=== PATIENT | male | born 1940 | race African-American/Black ===

== ENCOUNTER 2016-06-28 07:49 | Inpatient (IN) | payer OTHER ==
[~2016-06-28] VITALS: Ht 170.2 cm; Wt 61.2 kg
[~2016-06-28 07:49] MED LIST: AMLO1CAP PO; ASPI325T2 PO
[2016-06-28] MEDS ORDERED: MORPHINE SULFATE 4 MG/ML CPJ (NOT FOR IM USE) IV STA (08:07)
[2016-06-28] MEDS ORDERED: ONDANSETRON HCL 4MG/2ML VIAL IV STA (08:07)
[2016-06-28 08:26] LABS: BASOPHILS % 0.4 % (0.0-2.0); EOSINOPHILS % 0.3 % (0.0-5.0); LYMPHOCYTES % 7.1 % (20.0-50.0); MEAN CORPUSCULAR HEMOGLOBIN 28.4 pg (28.0-32.0); MEAN CORPUSCULAR HGB CONC 33.5 g/dL (31.0-37.0); MEAN PLATELET VOLUME 8.6 fl (7.4-10.4); MONOCYTES % 4.8 % (2.0-8.0); NEUTROPHILS % 87.4 % (40.0-76.0); PLATELET 268 x1000/uL (130-400); RED BLOOD CELL COUNT 5.29 mill/uL (4.7-6.1); RED CELL DISTRIBUTION WIDTH 14.6 % (11.6-14.6); WHITE BLOOD COUNT 7.5 x1000/uL (4.5-11.0)
[2016-06-28 08:30] LABS: PROTHROMBIN TIME 10.5 sec
[2016-06-28 09:21] LABS: ALANINE AMINOTRANSFERASE 12 IU/L (13-61); ALBUMIN 3.2 g/dL (3.4-5.0); ANION GAP 16; CALCIUM 9.2 mg/dL (8.5-10.1); CARBON DIOXIDE 31 mEq/L (21-32); CHLORIDE 92 mEq/L (98-107); INDEX HEMOLYSI 1 (1-3); INDEX ICTERIC 1 (1-4); INDEX LIPEMIC 1 (1-3); LIPASE 63 IU/L (73-393); TROPONIN I < 0.02 ng/mL (0.00-0.04); UREA NITROGEN BLOOD 8 mg/dL (7-21); eGFR > 60 mL/min (>60)
[2016-06-28 11:15] LABS: CLARITY URINE CLEAR (CLEAR); COLOR URINE YELLOW (YELLOW); GLUCOSE URINE NEGATIVE (NEGATIVE); KETONES URINE 1+ (NEGATIVE); LEUKOCYTE ESTERASE URINE NEGATIVE (NEGATIVE); NITRITE URINE NEGATIVE (NEGATIVE); OCCULT BLOOD URINE TRACE (NEGATIVE); PROTEIN URINE 1+ (NEGATIVE); SPECIFIC GRAVITY URINE 1.017 (1.005-1.030)
[2016-06-28 11:52] LABS: RBC URINE 0-2 /hpf (0-2); WBC URINE NONE SEEN /hpf (0-2)
[2016-06-28 11:53] LABS: BACTERIA URINE TRACE; SQUAMOUS EPITHELIAL CELL URINE NONE SEEN /lpf (RARE/1+)
[2016-06-28 12:40] VITALS: BP 177/104
[2016-06-28] MEDS ORDERED: ASPI-1035 PO (12:54)
[2016-06-28] MEDS ORDERED: CLONIDINE 0.1MG TABLET PO PRN (13:15)
[2016-06-28] MEDS: ONDANSETRON HCL 4MG/2ML VIAL IV PRN ×2 (13:29→20:51)
[2016-06-28] MEDS: CLONIDINE 0.1MG TABLET PO PRN (13:32)
[2016-06-28 16:00] VITALS: BP 159/92
[2016-06-28] MEDS: HYDROCODONE/ACETAMINOPHEN 5/325MG TABLET PO PRN (18:50)
[2016-06-28 20:00] VITALS: BP 131/83
[2016-06-29] VITALS: BP 165/92
[2016-06-29] MEDS: HYDROCODONE/ACETAMINOPHEN 5/325MG TABLET PO PRN ×3 (00:06→12:53)
[2016-06-29 04:00] VITALS: BP 156/86
[2016-06-29] MEDS: CLONIDINE 0.1MG TABLET PO PRN (05:40)
[2016-06-29 08:00] VITALS: BP 159/88
[2016-06-29] MEDS: PANTOPRAZOLE SODIUM 40 MG/VIAL IV SCH (09:01)
[2016-06-29 10:21] LABS: DIFFERENTIAL COMMENT 1; HEMOGLOBIN. 13.4 g/dL (14.0-18.0); MEAN CORPUSCULAR HEMOGLOBIN 28.5 pg (28.0-32.0); MEAN CORPUSCULAR HGB CONC 33.4 g/dL (31.0-37.0); MEAN CORPUSCULAR VOLUME 85.3 fL (80.0-94.0); MEAN PLATELET VOLUME 9.3 fl (7.4-10.4); PLATELET 251 x1000/uL (130-400); RED BLOOD CELL COUNT 4.69 mill/uL (4.7-6.1); RED CELL DISTRIBUTION WIDTH 14.3 % (11.6-14.6); WHITE BLOOD COUNT 10.8 x1000/uL (4.5-11.0)
[2016-06-29 10:41] LABS: PLATELET ESTIMATE NORMAL
[2016-06-29 10:50] LABS: ALANINE AMINOTRANSFERASE 15 IU/L (13-61); ALBUMIN 2.6 g/dL (3.4-5.0); ANION GAP 13; CALCIUM 8.3 mg/dL (8.5-10.1); CARBON DIOXIDE 29 mEq/L (21-32); CHLORIDE 92 mEq/L (98-107); INDEX HEMOLYSI 1 (1-3); INDEX ICTERIC 1 (1-4); INDEX LIPEMIC 1 (1-3); UREA NITROGEN BLOOD 11 mg/dL (7-21); eGFR > 60 mL/min (>60)
[2016-06-29 12:00] VITALS: BP 140/88
[2016-06-29] MEDS: METOCLOPRAMIDE HCL 10MG/2ML VIAL IV SCH ×2 (12:52→17:48)
[2016-06-29] MEDS: AMLODIPINE 5MG TABLET PO SCH (12:53)
[2016-06-29 16:00] VITALS: BP 120/77
[2016-06-29 20:00] VITALS: BP 126/77
[2016-06-30] VITALS: BP 120/72
[2016-06-30] MEDS: METOCLOPRAMIDE HCL 10MG/2ML VIAL IV SCH ×4 (00:08→17:23)
[2016-06-30 04:00] VITALS: BP_SYST 118; BP_SYST 121; BP_DIAS 74; BP_DIAS 81
[2016-06-30] MEDS: HYDROCODONE/ACETAMINOPHEN 5/325MG TABLET PO PRN (04:22)
[2016-06-30 08:00] VITALS: BP 117/73
[2016-06-30] MEDS: PANTOPRAZOLE SODIUM 40 MG/VIAL IV SCH (08:41)
[2016-06-30] MEDS: AMLODIPINE 5MG TABLET PO SCH (08:42)
[2016-06-30 12:00] VITALS: BP 114/87
[2016-06-30 16:00] VITALS: BP 118/87
[2016-06-30] MEDS: PROMETHAZINE 5 ML/6.25 MG 118ML LIQ PO PRN ×2 (16:38→20:48)
[2016-06-30 20:00] VITALS: BP 116/66
[2016-07-01] VITALS: BP 120/74
[2016-07-01] MEDS: METOCLOPRAMIDE HCL 10MG/2ML VIAL IV SCH ×3 (02:05→12:14)
[2016-07-01] MEDS: PROMETHAZINE 5 ML/6.25 MG 118ML LIQ PO PRN ×3 (02:05→12:14)
[2016-07-01 04:00] VITALS: BP 114/82
[2016-07-01] MEDS: HYDROCODONE/ACETAMINOPHEN 5/325MG TABLET PO PRN (07:03)
[2016-07-01 08:00] VITALS: BP 106/65
[2016-07-01] MEDS: AMLODIPINE 5MG TABLET PO SCH (08:15)
[2016-07-01] MEDS ORDERED: FAMOTIDINE 20MG TABLET PO SCH (09:00)
[2016-07-01 12:00] VITALS: BP 105/74
[2016-07-01 17:08] VITALS: BP 105/74
== END 2016-07-01 17:35 | disposition home or self-care (01) | DRG 190 ==
LOC: ER 08:07 → 6EST 12:39 → INTOOBSV 12:39 → OBSVTOIN 12:39
PROVIDERS: ADMIT Internal Medicine; ATTEND Internal Medicine
DX: J44.0 Chronic obstructive pulmonary disease with (acute) lower respiratory infection (principal); J18.9 Pneumonia, unspecified organism; C34.90 Malignant neoplasm of unspecified part of unspecified bronchus or lung; I25.10 Atherosclerotic heart disease of native coronary artery without angina pectoris; N20.0 Calculus of kidney; I10 Essential (primary) hypertension; K21.9 Gastro-esophageal reflux disease without esophagitis; K59.00 Constipation, unspecified; M19.90 Unspecified osteoarthritis, unspecified site; K29.70 Gastritis, unspecified, without bleeding; Z87.891 Personal history of nicotine dependence
CPT/HCPCS: 36415; 71010; 74176; 80053; 81001; 83690; 84484; 85025; 85610; 93005; 96374; 96375; 97162; 99285; C9113; J2270; J2405; J2765; Q0169